=== PATIENT | male | born 1995 | race African-American/Black ===

== ENCOUNTER 2021-12-29 15:00 | Emergency (ER) | payer SELFPAY ==
[2021-12-29] MEDS ORDERED: Sterile Water 10 ML ONE (16:10)
[2021-12-29] MEDS ORDERED: cefTRIAXone\\ROCEPHIN 500 MG VIAL ONE (16:10)
[2021-12-29 16:19] LABS: Bilirubin Neg (Negative); Blood, Urine 150 (Negative); Clarity Cloudy (Clear); Glucose, Urine (Dipstick) Normal (Negative); Ketone, Urine 5 mg/dL (Negative); Leukocyte 500 (Negative); Nitrite Negative (Negative); Protein, Urine (Dipstick) 30 mg/dl (Neg-Trace)
[2021-12-29 16:30] LABS: Bacteria/HPF 1+ HPF (None Seen); Squamous Epithelial 0-3 HPF (0-3); WBC/HPF 21-50 HPF (0-3)
[2021-12-30 16:34] LABS: Chlam.trachomatis by PCR,Urine DETECTED (NotDetected)
== END 2021-12-29 16:30 | disposition home or self-care (01) ==
LOC: CSHERS 15:00
DX: R36.9 Urethral discharge, unspecified (principal); Z20.2 Contact with and (suspected) exposure to infections with a predominantly sexual mode of transmission
CPT/HCPCS: 81003; 81015; 87491; 87591; 96372; 99283; J0696